=== PATIENT | male | born 1930 | race Caucasian/White ===

== ENCOUNTER → 2017-10-30 | Outpatient (CLI) | payer OTHER | LOC: CIMAGING 15:32 | PROVIDERS: ATTEND Internal Medicine | DX: M25.551 Pain in right hip (principal); G62.9 Polyneuropathy, unspecified; R60.9 Edema, unspecified | CPT/HCPCS: 73502-PO ==

== ENCOUNTER → 2018-01-22 | Outpatient (CLI) | payer OTHER | LOC: CIMAGING 14:30 | PROVIDERS: ATTEND Physician Assistant Medical | DX: M54.5 Low back pain (principal) | CPT/HCPCS: 72131-PO ==

== ENCOUNTER 2018-11-28 05:42 | Observation (INO) | payer OTHER | END 2018-11-28 15:32 | disposition home or self-care (01) | LOC: F2W 08:09 ==